=== PATIENT | male | born 1960 | race Hispanic/Latino ===

== ENCOUNTER → 2019-09-28 | Outpatient (CLI) | payer MEDICARE, OTHER ==
[~2019-09-28] MED LIST: ALYQ20 MG; AMLODIPINE BESY10 MG PO; CALCITRIOL0.5 MCG PO; FERROUS SULFAT325 M1 PO; HYDRALAZINE HCL25 MG PO; LETAIRIS5 MG; PANTOPRAZOLE SO40 MG PO; RENA-VITE TABL0.8 MG PO; RENAGEL800 MG PO
--- NOTE | 2019-09-28 12:52 | Diagnostic Imaging Report ---
EXAMINATION: PA and lateral views of the chest. COMPARISON: None CLINICAL HISTORY: Preoperative study for orthopedic procedure DISCUSSION: Multiple upper extremity and thoracic venous stents are noted, along with a left-sided hero graft, the tip of which terminates near the expected area of the inferior vena cava/right atrial junction. The lungs are well-inflated. Moderate right pleural effusion with adjacent probable passive atelectasis of the lower and middle lobes. Left lung is grossly clear. Mild enlargement of the cardiac silhouette with engorgement of the central pulmonary vasculature. No overt alveolar edema. no acute osseous abnormality. IMPRESSION: Left-sided dialysis graft positioned as above. Pulmonary venous congestion with a moderate right pleural effusion and probable passive atelectasis of the lower and middle lobes. Signed by: Dr. Yousuf Serrano M.D. on 09/28/2019 12:48 PM
== END ==
LOC: RAD 05:00 → EDSTATUS 10-03 09:00
PROVIDERS: ATTEND Specialist
DX: Z01.818 Encounter for other preprocedural examination (principal); M71.22 Synovial cyst of popliteal space [Baker], left knee; Z53.8 Procedure and treatment not carried out for other reasons; Z11.59 Encounter for screening for other viral diseases
CPT/HCPCS: 71046; 93005; U0002

== ENCOUNTER → 2019-11-21 | Day surgery (SDC) | payer MEDICARE, OTHER ==
[~2019-11-21] MED LIST changes: +BUPIVACAINE HCL 0.5% INJ 30 ML VIAL INJ ONE; +CEFAZOLIN SOD 1 GM/NS 50ML 50 ML IV ONE; +FENTANYL CITRATE/PF 100MCG/2 ML INJ ONE; +LIDOCAINE 1% W/EPINEPHRINE 20 ML VIAL ONE; +LIDOCAINE HCL 1% LOCAL INJ 20 ML VIAL ONE; +MIDAZOLAM HCL 2 MG/2 ML VIAL ONE; +SODIUM CHLORIDE 0.9% 500ML 500 ML ONE
[2019-11-21 06:48] LABS: BASOPHILS % 0.5 % (0.0-1.0); EOSINOPHILS # (AUTO) 0.1 (0.0-0.4); EOSINOPHILS % 2.1 % (0.0-6.0); HEMATOCRIT 34.6 % (38.2-49.6); HEMOGLOBIN 11.1 g/dL (14.0-18.0); LYMPHOCYTES # (AUTO) 1.2 (1.0-3.2); LYMPHOCYTES % 19.7 % (18.0-39.1); MEAN CORPUSCULAR HEMOGLOBIN 30.2 pg (28-32); MEAN CORPUSCULAR HGB CONC 32.1 g/dL (31-35); MONOCYTES # (AUTO) 0.9 (0.2-0.8); MONOCYTES % 14.2 % (4.4-11.3); NEUTROPHILS # (AUTO) 3.9 (2.1-6.9); NEUTROPHILS % 63.3 % (38.7-80.0); PLATELET COUNT 166 x10e3/uL (140-360); RED BLOOD COUNT 3.68 x10e6/uL (4.3-5.7); RED CELL DISTRIBUTION WIDTH 14.4 % (11.7-14.4)
[2019-11-21 07:04] LABS: ANION GAP 26.4 mmol/L (8-16); CALCIUM 9.6 mg/dL (8.4-10.2); CREATININE, SERUM 11.65 mg/dL (0.72-1.25); POTASSIUM 5.4 mmol/L (3.5-5.1)
[2019-11-21 07:07] LABS: INR 1.03
[2019-11-21 07:08] LABS: PARTIAL THROMBOPLASTIN TIME 36.7 seconds (23.8-35.5)
[2019-11-21 07:50] VITALS: BP 125/63
--- NOTE | 2019-11-21 09:00 | Operative Report ---
DATE OF PROCEDURE: 11/21/2019 SURGEON: Yousuf Purdy MD BAIT DIGGER: Rajinder Marin, certified PA. PREOPERATIVE DIAGNOSIS: Mass, left knee. POSTOPERATIVE DIAGNOSIS: Mass, left knee. PROCEDURE: Excisional biopsy of left knee mass. INDICATIONS: The patient is a 59-year-old gentleman, who has an approximate 3 cm x 3 cm cystic appearing mass directly over the patellar tendon of the left knee. He is status post a previous left knee tibial nail. The findings and options have been discussed. He would like to have this excised. The patient's past medical history is significant for diabetes and end-stage renal disease, on dialysis. PROCEDURE IN DETAIL: The patient was brought to the operating room and given a light MAC anesthetic. The area of the incision was infiltrated with 10 mL of 1% lidocaine with epinephrine. There was a previous incision directly over the patellar tendon. This was incised and the mass was bluntly dissected using a pair of pickups and Metzenbaum scissors. The mass was excised en bloc. It was dense and thick. There appeared to be a hemorrhagic core. This was sent to pathology. The wound was irrigated. There did not appear to be any stalk communicating anywhere below the mass. The skin was closed with subcuticular Vicryl. A sterile bandage with a pressure bolster over the anterior knee was applied. He was transported to the recovery room in stable condition. Blood loss was less than 5 mL. All needle and sponge counts were correct. Yousuf Purdy MD DR/MING /[id number]
== END | disposition home or self-care (01) ==
LOC: OR 05:00
PROVIDERS: ATTEND Specialist
DX: R22.42 Localized swelling, mass and lump, left lower limb (principal); I10 Essential (primary) hypertension; E11.9 Type 2 diabetes mellitus without complications; Z01.810 Encounter for preprocedural cardiovascular examination; Z01.812 Encounter for preprocedural laboratory examination; Z11.59 Encounter for screening for other viral diseases; Z99.2 Dependence on renal dialysis; Z68.30 Body mass index [BMI] 30.0-30.9, adult
CPT/HCPCS: 11403; 36415; 80048; 82948; 85025; 85610; 85730; 88304; 88313; 93005; J0690; J2001; J2250; J3010; J7040; U0002